=== PATIENT | female | born 1975 | race Caucasian/White ===

== ENCOUNTER 2018-06-22 15:07 | Emergency (ER) | payer BC ==
[~2018-06-22] VITALS: Ht 165.1 cm; Wt 96.3 kg
[~2018-06-22 15:07] MED LIST: DIAMOX SEQUELS500 MG PO; ECHINACEA HERB380 MG PO; FLOMAX0.4 MG PO; NAPROXEN500 MG PO; NORCO 5/3251 TABLET PO; VITAMIN B CO1 TABLET PO; VITAMIN D2000 UNIT PO; ZOFRAN ODT4 MG PO
[2018-06-22 15:53] LABS: HEMATOCRIT 43.1 % (36.0-46.0); HEMOGLOBIN 14.3 G/DL (11.9-15.5); MCH 28.7 PG (29.0-34.0); MCHC 33.2 G/DL (30.0-36.0); MCV 86.5 FL (83-99); PLATELET COUNT 343 K/uL (156-360); RBC DIS.WIDTH-CV 12.4 % (11.8-14.6); RBC DIS.WIDTH-SD 39.1 % (39-53); RED BLOOD COUNT 4.98 M/uL (3.80-5.20); WHITE BLOOD COUNT 14.5 K/uL (4.1-10.2)
[2018-06-22 16:05] LABS: CHLORIDE 110 mEq/L (99-109); POTASSIUM 3.6 mEq/L (3.7-5.4); SODIUM 142 mEq/L (136-147)
[2018-06-22 16:07] LABS: GLUCOSE 85 mg/dL (70-99)
[2018-06-22 16:11] LABS: CREATININE 0.8 mg/dL (0.6-1.3); GFR ESTIMATE (CALCULATED) > 59 mL/min/
[2018-06-22 16:12] LABS: UREA NITROGEN (BUN) 12 mg/dL (9-23)
[2018-06-22 16:19] LABS: TROP-I INTERPRETATION NEGATIVE; TROPONIN-I < 0.01 ng/mL (0.0-0.30)
[2018-06-22] MEDS ORDERED: TOPIRAMATE50 MG PO (16:44)
[2018-06-22] MEDS ORDERED: SPIRONOLACTONE50 MG PO (16:45)
[2018-06-22] MEDS ORDERED: FLONASE16 G1 BOTH NARES (16:45)
[2018-06-22] MEDS ORDERED: ALLEGRA60 MG PO (16:45)
[2018-06-22 19:12] LABS: TROP-I INTERPRETATION NEGATIVE; TROPONIN-I < 0.01 ng/mL (0.0-0.30)
[2018-06-22 19:34] VITALS: BP 136/83
== END 2018-06-22 19:41 | disposition home or self-care (01) ==
LOC: EME 15:07
PROVIDERS: Emergency Medicine
DX: R07.89 Other chest pain (principal); I10 Essential (primary) hypertension; Z85.41 Personal history of malignant neoplasm of cervix uteri; Z82.49 Family history of ischemic heart disease and other diseases of the circulatory system; E28.2 Polycystic ovarian syndrome; Z88.5 Allergy status to narcotic agent
CPT/HCPCS: 71046; 80048; 84484; 85027; 93005; 99281; 99285